=== PATIENT | male | born 1955 | race African-American/Black ===

== ENCOUNTER 2021-04-03 00:34 | Inpatient (IN) | payer OTHER, MEDICARE ==
[~2021-04-03] VITALS: Ht 167.6 cm; Wt 75.7 kg
[2021-04-03] VITALS (80 sets, daily range): BP systolic 59–187; BP diastolic 21–122
[2021-04-03] MEDS ORDERED: PIPERACILLIN/TAZ 3.375G PREMIX 50 ML IV SCH (00:45)
[2021-04-03] MEDS ORDERED: SODIUM CHLORIDE 0.9% 1000ML BAG (SEPSIS BOLUS) IV ONE (00:45)
[2021-04-03 01:44] LABS: HEMATOCRIT. 45.8 % (42.0-52.0); HEMOGLOBIN. 14.8 g/dL (14.0-18.0); MEAN CORPUSCULAR HEMOGLOBIN 28.6 pg (28.0-32.0); MEAN CORPUSCULAR VOLUME 88.5 fL (80.0-94.0); MEAN PLATELET VOLUME 13.5 fl (7.4-10.4); PLATELET 69 x1000/uL (130-400); RED BLOOD CELL COUNT 5.18 mill/uL (4.7-6.1)
[2021-04-03] MEDS ORDERED: NOREPINEPHRINE 8MG/250ML PMX 250 ML IV ONE (01:45)
[2021-04-03 01:52] LABS: CHLORIDE 100 mEq/L (98-107)
[2021-04-03 01:52] LABS: CLARITY URINE CLOUDY (CLEAR); COLOR URINE DARK YELLOW (YELLOW); KETONES URINE NEGATIVE (NEGATIVE); LEUKOCYTE ESTERASE URINE 1+ (NEGATIVE); NITRITE URINE POSITIVE (NEGATIVE); OCCULT BLOOD URINE 1+ (NEGATIVE); PROTEIN URINE 2+ (NEGATIVE)
[2021-04-03 02:01] LABS: CREATINE KINASE 195 IU/L (39-308)
[2021-04-03 02:03] LABS: INR 1.2; PROTHROMBIN TIME 12.7 sec (9.6-11.0)
[2021-04-03 04:10] LABS: PLATELET ESTIMATE DECREASED
[2021-04-03] MEDS ORDERED: GUAIFENESIN 200MG/10ML SUGAR FREE UDC PO PRN (06:30)
[2021-04-03] MEDS ORDERED: ENOXAPARIN 40MG/0.4ML SYR SUBCUT SCH (06:30)
[2021-04-03] MEDS ORDERED: CEFTRIAXONE 1 G PREMIX 50 ML IV SCH (07:00)
[2021-04-03] MEDS: PHENYLEPHRINE 50 MG in DEXT 5% WATER 245 ML IV PRN ×3 (07:09→18:54)
[2021-04-03] MEDS: SODIUM CHLORIDE 0.9% 1,000 ML IV SCH ×2 (07:15→20:30)
[2021-04-03] MEDS: ACETAMINOPHEN 325MG TABLET PO PRN (07:16)
[2021-04-03] MEDS ORDERED: DEXTROSE 50% WATER 50ML SYRINGE IV PRN (08:00)
[2021-04-03] MEDS ORDERED: DOCUSATE SODIUM 100MG CAPSULE PO PRN (09:00)
[2021-04-03] MEDS: BLOOD SUGAR DIAGNOSTIC STRIP TEST SCH ×3 (11:57→20:32)
[2021-04-03] MEDS: INSULIN LISPRO 100 UNITS/ML SUBCUT SCH ×3 (11:58→20:36)
[2021-04-03] MEDS ORDERED: SODIUM POLYSTYRENE SULFONATE 15 G/60 ML BOT PO NR (12:00)
[2021-04-03] MEDS ORDERED: METF-414 MT (12:33)
[2021-04-03] MEDS: AZITHROMYCIN 500 MG in DEXT 5% WATER 250 ML IV SCH (14:45)
[2021-04-03] MEDS: MIDODRINE HCL 5MG TABLET PO SCH (17:42)
[2021-04-03] MEDS ORDERED: MORPHINE SULFATE 2 MG/ML CPJ (NOT FOR IM USE) IV NR (21:00)
[2021-04-03 21:37] LABS: BG BASE EXCESS -8.7 mmol/L (-2.0-2.0); BG CARBOXYHEMOGLOBIN 0.7 % (0.5-1.5); BG HCO3 ACT 14.1 mmol/L (22.0-26.0); BG METHEMOGLOBIN 0.3 % (0.0-1.5); BG OXYGEN SATURATION 92.9 % (92.0-98.5); BG PCO2 23.6 mmHg (35.0-45.0); BG PH 7.394 (7.350-7.450); BG SAMPLE SITE RIGHT RADIAL; BG TOTAL HEMOGLOBIN 14.6 g/dL (12.0-18.0); BG VENT MODE ROOM AIR
[2021-04-03] MEDS ORDERED: SODIUM BICARBONATE 8.4% 1 MEQ/ML 50ML SYR IV SCH (22:00)
[2021-04-03] MEDS ORDERED: NOREPINEPHRINE 8MG/250ML PMX 250 ML IV PRN (23:15)
[2021-04-03] MEDS: PHENYLEPHRINE 100 MG in DEXT 5% WATER 240 ML IV PRN (23:57)
[2021-04-04] VITALS (99 sets, daily range): BP systolic 74–162; BP diastolic 44–142
[2021-04-04] MEDS: NOREPINEPHRINE 8 MG in DEXTROSE 5% WATER 250 ML IV PRN ×2 (00:09→11:42)
[2021-04-04] MEDS: SODIUM CHLORIDE 0.9% 1,000 ML IV SCH (02:30)
[2021-04-04 05:32] LABS: BASOPHILS % 0.5 % (0.0-2.0); EOSINOPHILS % 2.6 % (0.0-5.0); HEMATOCRIT. 41.2 % (42.0-52.0); HEMOGLOBIN. 13.9 g/dL (14.0-18.0); LYMPHOCYTES % 7.9 % (20.0-50.0); MEAN CORPUSCULAR VOLUME 85.8 fL (80.0-94.0); MONOCYTES % 3.7 % (2.0-8.0); NEUTROPHILS % 85.3 % (40.0-76.0)
[2021-04-04 05:41] LABS: CHLORIDE 109 mEq/L (98-107)
[2021-04-04 05:56] LABS: PHOSPHORUS 1.8 mg/dL (2.5-4.9)
[2021-04-04] MEDS: BLOOD SUGAR DIAGNOSTIC STRIP TEST SCH ×4 (06:04→21:40)
[2021-04-04] MEDS: INSULIN LISPRO 100 UNITS/ML SUBCUT SCH ×4 (06:04→21:00)
[2021-04-04] MEDS ORDERED: CEFTRIAXONE 1,000 MG in DEXTROSE 5% WATER 50 ML IV SCH (07:00)
[2021-04-04] MEDS: MIDODRINE HCL 5MG TABLET PO SCH ×3 (08:15→17:43)
[2021-04-04] MEDS: PHENYLEPHRINE 100 MG in DEXT 5% WATER 240 ML IV PRN ×2 (08:16→16:51)
[2021-04-04] MEDS ORDERED: SODIUM PHOS,M-BASIC-D-BASIC 30 MM in DEXT 5% WATER 500 ML IV ONE (10:00)
[2021-04-04] MEDS ORDERED: HEPARIN 1000 UNITS/ML 10ML ONE (10:09)
[2021-04-04] MEDS ORDERED: VASOPRESSIN 20 UNIT in SODIUM CHLORIDE 0.9% 99 ML IV PRN (10:15)
[2021-04-04] MEDS: CEFEPIME 1,000 MG in DEXTROSE 5% WATER 50 ML IV SCH (11:41)
[2021-04-04 11:54] LABS: PLATELET 54 x1000/uL (130-400)
[2021-04-04] MEDS: AZITHROMYCIN 500 MG in DEXT 5% WATER 250 ML IV SCH (12:55)
[2021-04-04] MEDS ORDERED: VANCOMYCIN 1 G PREMIX 200 ML IV NR (16:00)
[2021-04-04] MEDS: ONDANSETRON HCL 4MG/2ML INJ IV PRN (21:49)
[2021-04-04] MEDS: ACETAMINOPHEN 325MG TABLET PO PRN (21:50)
[2021-04-05] VITALS (95 sets, daily range): BP systolic 77–170; BP diastolic 39–84
[2021-04-05] MEDS: PHENYLEPHRINE 100 MG in DEXT 5% WATER 240 ML IV PRN ×4 (00:20→21:16)
[2021-04-05] MEDS: NOREPINEPHRINE 8 MG in DEXTROSE 5% WATER 250 ML IV PRN (03:33)
[2021-04-05 05:42] LABS: HEMOGLOBIN. 12.3 g/dL (14.0-18.0); MEAN CORPUSCULAR HEMOGLOBIN 28.6 pg (28.0-32.0); MEAN CORPUSCULAR VOLUME 86.2 fL (80.0-94.0); RED BLOOD CELL COUNT 4.29 mill/uL (4.7-6.1); RED CELL DISTRIBUTION WIDTH 15.3 % (11.6-14.6)
[2021-04-05 05:57] LABS: CHLORIDE 100 mEq/L (98-107)
[2021-04-05 06:07] LABS: PHOSPHORUS 5.8 mg/dL (2.5-4.9)
[2021-04-05 06:13] LABS: HEPATITIS B SURFACE ANTIGEN NEGATIVE
[2021-04-05] MEDS: BLOOD SUGAR DIAGNOSTIC STRIP TEST SCH ×4 (06:28→21:03)
[2021-04-05] MEDS: INSULIN LISPRO 100 UNITS/ML SUBCUT SCH ×4 (06:38→21:15)
[2021-04-05] MEDS: MIDODRINE HCL 5MG TABLET PO SCH ×3 (08:32→17:36)
[2021-04-05] MEDS: ONDANSETRON HCL 4MG/2ML INJ IV PRN ×2 (08:32→19:00)
[2021-04-05 09:54] LABS: BG BASE EXCESS -6.2 mmol/L (-2.0-2.0); BG CARBOXYHEMOGLOBIN 0.3 % (0.5-1.5); BG DEOXYHEMOGLOBIN 6.2 % (0.0-5.0); BG FRACTION INSPIRED OXYGEN 24; BG HCO3 ACT 17.6 mmol/L (22.0-26.0); BG METHEMOGLOBIN 0.5 % (0.0-1.5); BG OXYGEN SATURATION 93.8 % (92.0-98.5); BG PH 7.387 (7.350-7.450); BG PO2 75.5 mmHg (75.0-100.0); BG TOTAL HEMOGLOBIN 12.1 g/dL (12.0-18.0); BG VENT MODE NASAL CANNULA
[2021-04-05 10:08] LABS: MEAN PLATELET VOLUME 14.7 fl (7.4-10.4); PLATELET 56 x1000/uL (130-400); PLATELET ESTIMATE DECREASED
[2021-04-05] MEDS: FAMOTIDINE 20MG/2ML VIAL IV SCH (11:21)
[2021-04-05] MEDS: CEFEPIME 1,000 MG in DEXTROSE 5% WATER 50 ML IV SCH (11:21)
[2021-04-05] MEDS: AZITHROMYCIN 500 MG in DEXT 5% WATER 250 ML IV SCH (13:06)
[2021-04-05 16:47] LABS: D-DIMER 9.62 mg/L FEU (<0.50)
[2021-04-05] MEDS: DOXYCYCLINE HYCLATE 100MG CAPSULE PO SCH (17:35)
[2021-04-05] MEDS ORDERED: FAMOTIDINE 20MG/2ML VIAL IV SCH (21:00)
[2021-04-06] VITALS (93 sets, daily range): BP systolic 77–133; BP diastolic 41–81
[2021-04-06] MEDS: DOXYCYCLINE HYCLATE 100MG CAPSULE PO SCH ×2 (05:36→17:42)
[2021-04-06 05:42] LABS: HEMATOCRIT. 35.8 % (42.0-52.0); MEAN CORPUSCULAR VOLUME 86.4 fL (80.0-94.0); MEAN PLATELET VOLUME 11.8 fl (7.4-10.4); RED BLOOD CELL COUNT 4.14 mill/uL (4.7-6.1); RED CELL DISTRIBUTION WIDTH 15.6 % (11.6-14.6)
[2021-04-06 06:01] LABS: PHOSPHORUS 3.9 mg/dL (2.5-4.9)
[2021-04-06] MEDS: INSULIN LISPRO 100 UNITS/ML SUBCUT SCH ×4 (07:20→21:36)
[2021-04-06] MEDS: BLOOD SUGAR DIAGNOSTIC STRIP TEST SCH ×4 (07:20→21:30)
[2021-04-06] MEDS: MIDODRINE HCL 5MG TABLET PO SCH ×3 (08:41→17:43)
[2021-04-06 10:01] LABS: PLATELET ESTIMATE MARKEDLY DECREASED
[2021-04-06 10:02] LABS: PLATELET 47 x1000/uL (130-400)
[2021-04-06] MEDS: FAMOTIDINE 20MG/2ML VIAL IV SCH (12:00)
[2021-04-06] MEDS: CEFEPIME 1,000 MG in DEXTROSE 5% WATER 50 ML IV SCH (12:00)
[2021-04-06] MEDS: PHENYLEPHRINE 100 MG in DEXT 5% WATER 240 ML IV PRN (12:01)
[2021-04-07] VITALS (102 sets, daily range): BP systolic 68–140; BP diastolic 40–79
[2021-04-07] MEDS: DOXYCYCLINE HYCLATE 100MG CAPSULE PO SCH ×2 (05:38→17:40)
[2021-04-07] MEDS: PHENYLEPHRINE 100 MG in DEXT 5% WATER 240 ML IV PRN (05:42)
[2021-04-07 05:54] LABS: BASOPHILS % 0.7 % (0.0-2.0); EOSINOPHILS % 0.9 % (0.0-5.0); HEMATOCRIT. 33.4 % (42.0-52.0); HEMOGLOBIN. 11.1 g/dL (14.0-18.0); LYMPHOCYTES % 30.2 % (20.0-50.0); MEAN CORPUSCULAR HEMOGLOBIN 28.6 pg (28.0-32.0); MEAN CORPUSCULAR VOLUME 86.2 fL (80.0-94.0); MONOCYTES % 7.8 % (2.0-8.0); NEUTROPHILS % 60.4 % (40.0-76.0); RED BLOOD CELL COUNT 3.87 mill/uL (4.7-6.1); RED CELL DISTRIBUTION WIDTH 15.9 % (11.6-14.6)
[2021-04-07] MEDS: BLOOD SUGAR DIAGNOSTIC STRIP TEST SCH ×4 (06:28→21:27)
[2021-04-07] MEDS: INSULIN LISPRO 100 UNITS/ML SUBCUT SCH ×4 (06:29→21:00)
[2021-04-07 06:49] LABS: PHOSPHORUS 5.1 mg/dL (2.5-4.9)
[2021-04-07] MEDS: MIDODRINE HCL 5MG TABLET PO SCH ×3 (08:26→17:41)
[2021-04-07] MEDS: FAMOTIDINE 20MG/2ML VIAL IV SCH (11:07)
[2021-04-07] MEDS: CEFEPIME 1,000 MG in DEXTROSE 5% WATER 50 ML IV SCH (11:07)
[2021-04-07 11:43] LABS: MEAN PLATELET VOLUME 13.9 fl (7.4-10.4); PLATELET 67 x1000/uL (130-400)
[2021-04-08] VITALS (42 sets, daily range): BP systolic 81–136; BP diastolic 39–70
[2021-04-08 05:12] LABS: HIV SCREEN 4G Non Reactive (Non Reactive)
[2021-04-08 05:56] LABS: BASOPHILS % 0.7 % (0.0-2.0); EOSINOPHILS % 0.6 % (0.0-5.0); HEMATOCRIT. 31.2 % (42.0-52.0); HEMOGLOBIN. 10.4 g/dL (14.0-18.0); LYMPHOCYTES % 22.8 % (20.0-50.0); MEAN CORPUSCULAR HEMOGLOBIN 29.1 pg (28.0-32.0); MEAN CORPUSCULAR VOLUME 86.8 fL (80.0-94.0); MEAN PLATELET VOLUME 12.7 fl (7.4-10.4); MONOCYTES % 6.1 % (2.0-8.0); NEUTROPHILS % 69.8 % (40.0-76.0); PLATELET 59 x1000/uL (130-400); RED BLOOD CELL COUNT 3.59 mill/uL (4.7-6.1); RED CELL DISTRIBUTION WIDTH 15.8 % (11.6-14.6)
[2021-04-08] MEDS: DOXYCYCLINE HYCLATE 100MG CAPSULE PO SCH ×2 (06:11→17:09)
[2021-04-08 06:18] LABS: PHOSPHORUS 4.2 mg/dL (2.5-4.9)
[2021-04-08] MEDS: BLOOD SUGAR DIAGNOSTIC STRIP TEST SCH ×4 (07:59→21:17)
[2021-04-08] MEDS: INSULIN LISPRO 100 UNITS/ML SUBCUT SCH ×4 (08:00→21:25)
[2021-04-08] MEDS: FAMOTIDINE 20MG/2ML VIAL IV SCH (08:22)
[2021-04-08] MEDS: MIDODRINE HCL 5MG TABLET PO SCH ×3 (08:23→17:09)
[2021-04-08] MEDS: CEFEPIME 1,000 MG in DEXTROSE 5% WATER 50 ML IV SCH (11:27)
== END 2021-04-08 21:49 | disposition short-term general hospital (02) | DRG 871 ==
LOC: ER 00:34 → MICUSO 05:12 → CVICU 04-05 19:30
PROVIDERS: ADMIT Hospitalist; ATTEND Hospitalist
PROC: B54BZZA Ultrasonography of Right Lower Extremity Veins, Guidance (ICD-10-PCS; 2021-04-03)
PROC: 06HY33Z Insertion of Infusion Device into Lower Vein, Percutaneous Approach (ICD-10-PCS; 2021-04-03)
PROC: 02HV33Z Insertion of Infusion Device into Superior Vena Cava, Percutaneous Approach (ICD-10-PCS; principal; 2021-04-04)
PROC: B548ZZA Ultrasonography of Superior Vena Cava, Guidance (ICD-10-PCS; 2021-04-04)
DX: A41.9 Sepsis, unspecified organism (principal); E43 Unspecified severe protein-calorie malnutrition; J18.9 Pneumonia, unspecified organism; R65.21 Severe sepsis with septic shock; N39.0 Urinary tract infection, site not specified; N17.9 Acute kidney failure, unspecified; G93.40 Encephalopathy, unspecified; D69.6 Thrombocytopenia, unspecified; E11.22 Type 2 diabetes mellitus with diabetic chronic kidney disease; N18.9 Chronic kidney disease, unspecified; E11.65 Type 2 diabetes mellitus with hyperglycemia; R74.01 Elevation of levels of liver transaminase levels; E87.5 Hyperkalemia; I12.9 Hypertensive chronic kidney disease with stage 1 through stage 4 chronic kidney disease, or unspecified chronic kidney disease; F03.90 Unspecified dementia, unspecified severity, without behavioral disturbance, psychotic disturbance, mood disturbance, and anxiety; Z20.822 Contact with and (suspected) exposure to COVID-19; Z82.49 Family history of ischemic heart disease and other diseases of the circulatory system; Z83.3 Family history of diabetes mellitus
CPT/HCPCS: 36415; 36600; 71045; 74176; 76937; 80048; 80053; 81003; 82140; 82375; 82550; 82805; 82962; 83036; 83605; 83735; 83880; 84100; 84145; 84443; 84484; 85025; 85379; 85384; 86038; 86705; 86709; 86757; 86803; 87340; 87389; 87426; 93005; 93306; 93970; 99291; C1725; J0456; J0692; J0696; J1644; J1815; J2270; J2370; J2405; J2543; J3370; J3490; J7030; J7040; J7060